=== PATIENT | male | born 1980 | race Caucasian/White ===

== ENCOUNTER 2022-08-31 22:28 | Observation (INO) | payer OTHER ==
[~2022-08-31] VITALS: Ht 182.9 cm; Wt 107.3 kg
[2022-08-31 23:24] LABS: BASOPHILS ABSOLUTE AUTO 0.09 K/mm3 (0.00-0.23); BASOPHILS PERCENT AUTO 1 % (0-2); EOSINOPHILS ABSOLUTE AUTO 0.03 K/mm3 (0.00-0.68); EOSINOPHILS PERCENT AUTO 0 % (0-6); Hematocrit 36.3 % (37.0-53.0); Hemoglobin 13.4 g/dL (13.5-17.5); IMMATURE GRAN ABSOLUTE AUTO 0.07 K/mm3 (0.00-0.10); IMMATURE GRAN PERCENT AUTO 1 % (0-1); LYMPHOCYTES ABSOLUTE AUTO 1.86 K/mm3 (0.84-5.20); LYMPHOCYTES PERCENT AUTO 24 % (21-46); MONOCYTES ABSOLUTE AUTO 0.77 K/mm3 (0.16-1.47); MONOCYTES PERCENT AUTO 10 % (4-13); Mean Corpuscular HGB 32.9 pg (26.0-34.0); Mean Corpuscular HGB Conc 36.9 g/dL (31.5-36.5); Mean Corpuscular Volume 89 fL (80-100); Mean Platelet Volume 10.5 fL (9.1-12.4); NEUTROPHILS ABSOLUTE AUTO 4.92 K/mm3 (1.96-9.15); NEUTROPHILS PERCENT AUTO 64 % (41-73); NRBC ABSOLUTE 0.02 K/mm3 (0.00-0.02); NRBC Auto 0.3 /100 WBC (0.0-0.2); Platelet Count 77 K/mm3 (150-400); RDW Coefficient Variation 12.1 % (11.7-14.2); RDW Standard Deviation 39.7 fL (35.1-46.3); Red Blood Cell Count 4.07 M/mm3 (4.30-5.90); White Blood Cell Count 7.74 K/mm3 (4.00-11.30)
[2022-08-31 23:48] LABS: International Normalized Ratio 1.37; Prothrombin Time Results 14.1 Sec (9.7-11.5)
[2022-08-31 23:53] LABS: Albumin, Blood 3.2 g/dL (3.4-5.0); Albumin/Globulin Ratio 0.6 (0.8-1.8); Bilirubin, Total 6.2 mg/dL (0.1-1.0); Bun/Creatinine Ratio 22.4 (12.0-20.0); Creatinine, Blood 0.49 mg/dL (0.60-1.20); Potassium, Blood 3.1 mmol/L (3.5-5.5); Total Protein, Blood 8.2 g/dL (6.4-8.2)
[2022-09-01 05:33] LABS: BASOPHILS ABSOLUTE AUTO 0.07 K/mm3 (0.00-0.23); BASOPHILS PERCENT AUTO 1 % (0-2); EOSINOPHILS ABSOLUTE AUTO 0.03 K/mm3 (0.00-0.68); EOSINOPHILS PERCENT AUTO 0 % (0-6); Hematocrit 33.8 % (37.0-53.0); Hemoglobin 12.4 g/dL (13.5-17.5); IMMATURE GRAN ABSOLUTE AUTO 0.08 K/mm3 (0.00-0.10); IMMATURE GRAN PERCENT AUTO 1 % (0-1); LYMPHOCYTES ABSOLUTE AUTO 1.43 K/mm3 (0.84-5.20); LYMPHOCYTES PERCENT AUTO 19 % (21-46); MONOCYTES ABSOLUTE AUTO 0.76 K/mm3 (0.16-1.47); MONOCYTES PERCENT AUTO 10 % (4-13); Mean Corpuscular HGB 33.2 pg (26.0-34.0); Mean Corpuscular HGB Conc 36.7 g/dL (31.5-36.5); Mean Corpuscular Volume 91 fL (80-100); Mean Platelet Volume 10.1 fL (9.1-12.4); NEUTROPHILS ABSOLUTE AUTO 5.26 K/mm3 (1.96-9.15); NEUTROPHILS PERCENT AUTO 69 % (41-73); Platelet Count 74 K/mm3 (150-400); RDW Coefficient Variation 12.2 % (11.7-14.2); RDW Standard Deviation 40.1 fL (35.1-46.3); Red Blood Cell Count 3.73 M/mm3 (4.30-5.90); White Blood Cell Count 7.63 K/mm3 (4.00-11.30)
--- NOTE | 2022-09-01 05:42 | NUR ---
[facility]IV[facility] SPINNER SUMMARY NEW ADMIT FROM THE ED TONIGHT. PT AAOX4 AND PLEASANT. INDEPENDENT IN ROOM. GAVE 1 K RIDER FOR K+ OF 3.1. PT REPORTS LAST DRINK OF ALCOHOL AT 1200 ON 08/31. MEDICATED X1 WITH 25 MG LIBRIUM PT HAD SOME VERY MINOR HAND TREMORS AND REPORTED BEING "A LITTLE ANXIOUS AND HAVING TROUBLE SLEEPING". PT ABLE TO REST WELL AFTER. IV FLUIDS INFUSING. VSS, WILL CONTINUE TO MONITOR.
[2022-09-01 06:06] LABS: Albumin/Globulin Ratio 0.7 (0.8-1.8); Bilirubin, Total 6.1 mg/dL (0.1-1.0); Bun/Creatinine Ratio 24.3 (12.0-20.0); Calcium, Blood 8.1 mg/dL (8.5-10.1); Creatinine, Blood 0.45 mg/dL (0.60-1.20); Globulin, Blood 4.6 g/dL (2.2-4.0); Potassium, Blood 3.4 mmol/L (3.5-5.5); Total Protein, Blood 7.6 g/dL (6.4-8.2)
[2022-09-01 11:04] LABS: Hematocrit 33.2 % (37.0-53.0); Hemoglobin 11.8 g/dL (13.5-17.5)
[2022-09-01] MEDS ORDERED: B-1100 M1 PO (11:54)
[2022-09-01] MEDS ORDERED: FOLI1 PO (11:54)
--- NOTE | 2022-09-01 16:28 | NUR ---
PT DISCHARGED TODAY AND ALL PAPERWORK AND EDUCATIONAL MATERIAL REVIEWED WITH PT. FAMILY AND PT WERE VERY CONCERNED ABOUT DISCHARGING AND PT HAVING INCREASES OF WITHDRAWL. DR MURILLO WAS NOTIFIED AND ORDERED PT TO GO TO REHAB FACILITY DIRRECTLY FROM HOSPITAL AFTER DISCHARGE. PT WAS INSTRUCTED OF THIS AND WAS SET UP WITH [facility] FOR [facility]. SISTER'S TO TRANSPORT PT TO [facility]. PT WAS TREATED FOR WITHDRAWL PER EMAR. PT COOPERATIVE OF ALL CARE AND AOX4 THROUGHOUT. PT ESCORTED OUT VIA WHEELCHAIR BY THIS CASTING FINISHER TO N ENTRANCE.
[2022-09-02] MEDS ORDERED: CHLO25 PO (13:08)
[2022-09-02] MEDS ORDERED: FOLI1 PO (13:08)
[2022-09-02] MEDS ORDERED: B-1100 M1 PO (13:09)
[2022-09-02] MEDS ORDERED: 1/2 NS 250ml250 ML (13:09)
[2022-09-02] MEDS ORDERED: MULVITA PO (13:09)
[2022-09-03 01:10] LABS: HBSAG SCREEN Negative (Negative); HCV AB <0.1 (0.0-0.9); HEP A AB, IGM Negative (Negative); HEP B CORE AB, TOT Negative (Negative)
== END 2022-09-01 15:45 | disposition home or self-care (01) ==
LOC: ER 22:28 → MEDS 09-01 02:17
PROVIDERS: Emergency Medicine; Family Medicine; ADMIT Family Medicine
DX: K70.10 Alcoholic hepatitis without ascites (principal); R04.0 Epistaxis; F10.10 Alcohol abuse, uncomplicated; E87.6 Hypokalemia; D64.9 Anemia, unspecified; D69.6 Thrombocytopenia, unspecified; E87.1 Hypo-osmolality and hyponatremia; I10 Essential (primary) hypertension; K76.0 Fatty (change of) liver, not elsewhere classified; R16.0 Hepatomegaly, not elsewhere classified; Y90.8 Blood alcohol level of 240 mg/100 ml or more
CPT/HCPCS: 36415; 76705; 80053; 83690; 85014; 85018; 85025; 85610; 85730; 93005; 93010; 96361; A9270; G0378; G0480; J3480; J7030

== ENCOUNTER 2022-09-15 11:36 | Inpatient (IN) | payer OTHER ==
[~2022-09-15 11:36] MED LIST: 1/2 NS 250ml250 ML; B-1100 M1 PO; CHLO25 PO; FOLI1 PO; ONE DAILY MUL400 MCG PO
[2022-09-23] MEDS ORDERED: LORA10ER PO (14:21)
[2022-09-23] MEDS ORDERED: FURO20 PO (14:22)
[2022-09-23] MEDS ORDERED: SPIR25 PO (14:22)
[2022-09-23] MEDS ORDERED: VISBIOME 112.51 EACH PO (14:22)
[2022-09-23] MEDS ORDERED: LEVOFLOXACIN750 MG PO (14:23)
[2022-09-23] MEDS ORDERED: VITAMIN B COMP1 EAC1 PO (14:27)
== END 2022-09-23 16:58 | disposition home or self-care (01) | DRG 871 ==
DX: A41.9 Sepsis, unspecified organism (principal); K65.2 Spontaneous bacterial peritonitis; N17.9 Acute kidney failure, unspecified; N39.0 Urinary tract infection, site not specified; E87.1 Hypo-osmolality and hyponatremia; Z28.21 Immunization not carried out because of patient refusal; F10.10 Alcohol abuse, uncomplicated; E83.39 Other disorders of phosphorus metabolism; E80.6 Other disorders of bilirubin metabolism; F41.9 Anxiety disorder, unspecified; R34 Anuria and oliguria; E87.6 Hypokalemia; K70.31 Alcoholic cirrhosis of liver with ascites; D63.1 Anemia in chronic kidney disease; E88.09 Other disorders of plasma-protein metabolism, not elsewhere classified; I95.9 Hypotension, unspecified; Z90.89 Acquired absence of other organs; Z98.890 Other specified postprocedural states; Z79.899 Other long term (current) drug therapy; Y90.0 Blood alcohol level of less than 20 mg/100 ml

== ENCOUNTER → 2022-10-20 | Outpatient (CLI) | payer OTHER ==
[~2022-10-20] MED LIST changes: +FURO20 PO; +LEVOFLOXACIN750 MG PO; +LORA10ER PO; +SPIR25 PO; +VISBIOME 112.51 EACH PO; +VITAMIN B COMP1 EAC1 PO
[2022-10-20 13:18] LABS: Influenza B, PCR NEGATIVE (NEGATIVE); Resp Syncytial Virus, PCR NEGATIVE (NEGATIVE); SARS-Cov-2 (COVID-19) PCR, MMC NEGATIVE (NEGATIVE)
[2022-10-20 13:19] LABS: Influenza A, PCR POSITIVE (NEGATIVE)
== END | disposition home or self-care (01) ==
LOC: LAB SHORT 09:13
PROVIDERS: Family Medicine
DX: R50.9 Fever, unspecified (principal)
CPT/HCPCS: 0241U

== ENCOUNTER → 2024-05-10 | Outpatient (CLI) | payer OTHER ==
[2024-05-10 15:21] LABS: C DIFFICILE DNA NEGATIVE (Negative)
== END | disposition home or self-care (01) ==
LOC: LAB 07:32 → LAB SHORT 07:32 → LAB FUT 05-09 08:30
PROVIDERS: Internal Medicine Gastroenterology
DX: R19.4 Change in bowel habit (principal)
CPT/HCPCS: 87493

== ENCOUNTER 2024-05-28 06:06 | Day surgery (SDC) | payer OTHER ==
[~2024-05-28] VITALS: Ht 182.9 cm; Wt 103.3 kg
[2024-05-28] VITALS (8 sets, daily range): BP systolic 107–130; BP diastolic 76–86
[2024-05-28] MEDS ORDERED: Lactated Ringer's 1,000 ML IV SCH (06:30)
[2024-05-28] MEDS ORDERED: Bupivacaine 0.5% HCl 5 MG/ML 30MLVIAL ONE (07:00)
[2024-05-28] MEDS ORDERED: propofoL 20 ML IV ONE (07:08)
[2024-05-28] MEDS ORDERED: Rocuronium Bromide 10 MG/ML 5ML Injection IV ONE ×2 (07:09→07:43)
[2024-05-28] MEDS ORDERED: Sugammadex Sodium 200 MG/2ML SDV (100 MG/ML) ONE (07:09)
[2024-05-28] MEDS ORDERED: Dexamethasone Sod Phos 10 MG/ML 1ML VIAL ONE (07:09)
[2024-05-28] MEDS ORDERED: Lidocaine HCl 2% 20 ML MDV ONE (07:09)
[2024-05-28] MEDS ORDERED: FentaNYL Citrate 50 MCG/ML 2 ML Injection ONE (07:09)
[2024-05-28] MEDS ORDERED: Ondansetron HCl 2 MG / ML 2ML Vial ONE (07:09)
[2024-05-28] MEDS ORDERED: Midazolam HCl 1MG / ML 2ML Vial IV PRN (07:10)
[2024-05-28] MEDS ORDERED: Lidocaine HCl 1% 5 ML SYR INJ ONE (07:10)
[2024-05-28] MEDS ORDERED: Dexmedetomidine HCL 200 MCG / 2 ML ONE (07:25)
--- NOTE | 2024-05-28 07:26 | NUR ---
History, Chart, Medications and Allergies reviewed before start of procedure. Pre-Op teaching done. Pt verbalizes understanding. Ambulatory in Day Surgery WITH STEADY GAIT. BELONGINGS PLACED UNDER GURN. Patient States Post-Procedure ride home has been arranged WITH [facility]. CONTACTS REMAIN IN PLACE, JOSR MOON AND DR ERICKSON AWARE.
[2024-05-28] MEDS ORDERED: Ketorolac Tromethamine 30mg Vial ONE (08:14)
[2024-05-28] MEDS ORDERED: HYDROcodone 5-APAP 325 TAB PO PRN (09:35)
--- NOTE | 2024-05-28 10:32 | NUR ---
Discharge instructions reviewed with patient. Patient verbalizes understanding. Copy given to patient to take home. Procedure site clean, dry, intact with no visible drainage, swelling, erythema or bruising noted.
== END 2024-05-28 10:35 | disposition home or self-care (01) ==
LOC: ORSCMMR 06:06 → ORD 07:30 → ORSCMMR 07:30
PROVIDERS: Surgery
PROC: 8E0W4CZ Robotic Assisted Procedure of Trunk Region, Percutaneous Endoscopic Approach (ICD-10-PCS; principal; 2024-05-28 07:30)
PROC: 0WUF4JZ Supplement Abdominal Wall with Synthetic Substitute, Percutaneous Endoscopic Approach (ICD-10-PCS; principal; 2024-05-28 07:30)
DX: K42.0 Umbilical hernia with obstruction, without gangrene (principal); K74.60 Unspecified cirrhosis of liver; R73.03 Prediabetes; E66.9 Obesity, unspecified; Z68.30 Body mass index [BMI] 30.0-30.9, adult
CPT/HCPCS: A9270; C1781; J1100; J1885; J2250; J2405; J2704; J3010; J7120